=== PATIENT | female | born 1955 | race Caucasian/White ===

== ENCOUNTER 2018-09-03 16:18 | Outpatient (REF) | payer BC, SELFPAY ==
[2018-09-03 20:54] LABS: ALT 36 U/L (12-78); AST 26 U/L (15-37); Albumin 3.5 g/dL (3.4-5.0); Alkaline Phosphatase 98 U/L (46-116); Anion Gap 9.6 mmol/L (3-11); BUN 21 mg/dL (7-18); Bilirubin, Total 0.3 mg/dL (0.2-1.0); CO2 28.4 mmol/L (21.0-32.0); CREATININE 0.73 mg/dL (0.55-1.02); Calcium 9.3 mg/dL (8.5-10.1); Chloride 104 mmol/L (98-107); Glucose 93 mg/dL (70-100); Magnesium 2.2 mg/dL (1.8-2.4); Potassium 4.3 mmol/L (3.5-5.1); Sodium 142 mmol/L (136-145); Total Protein 7.3 g/dL (6.4-8.2)
[2018-09-03 21:20] LABS: HCT 42.2 % (36.0-46.0); HGB 14.1 g/dL (12.0-15.5); Mean Corp. HGB Concentration 33.4 g/dL (32.0-36.0); Mean Corpuscular Hemoglobin 29.9 pg (27.0-33.0); Mean Corpuscular Volume 89.4 fL (80-95); Mean Platelet Volume 10.3 fL (8.0-11.0); Platelet Count 311 x1000/uL (130-400); RBC 4.72 m/cumm (4.00-5.20); RBC Distribution Width 13.4 % (11.7-14.6); White Blood Cell Count 7.73 k/cumm (4.4-10.8)
[2018-09-03 22:25] LABS: ESR 12 MM/HR (0-30)
== END 2018-09-03 16:38 ==
LOC: NCHCN 16:18
PROVIDERS: PCP Nurse Practitioner Family; Visit Provider Family Medicine
DX: R42 Dizziness and giddiness (principal); M62.81 Muscle weakness (generalized)
CPT/HCPCS: 80053; 85027; 85652; 83735; 84443

== ENCOUNTER 2019-03-04 20:48 | Outpatient (REF) | payer BC, SELFPAY | END 2019-03-04 21:08 | LOC: NCHCN 20:48 | PROVIDERS: PCP Nurse Practitioner Family; Visit Provider Nurse Practitioner Family | DX: N39.0 Urinary tract infection, site not specified (principal) | CPT/HCPCS: 87086 ==

== ENCOUNTER 2019-03-08 15:56 | Outpatient (REF) | payer BC, SELFPAY | END 2019-03-08 16:16 | LOC: NCHCN 15:56 | PROVIDERS: PCP Nurse Practitioner Family; Visit Provider Nurse Practitioner Family | DX: N39.0 Urinary tract infection, site not specified (principal) | CPT/HCPCS: 87077; 87086; 87186 ==

== ENCOUNTER 2020-01-09 17:58 | Outpatient (REF) | payer MEDICAID, SELFPAY ==
[2020-01-09 21:17] LABS: Anion Gap 9.4 mmol/L (3-11); BUN 18 mg/dL (7-18); CO2 27.6 mmol/L (21.0-32.0); CREATININE 0.83 mg/dL (0.55-1.02); Chloride 104 mmol/L (98-107); Glucose 107 mg/dL (74-106); Potassium 3.9 mmol/L (3.5-5.1); Sodium 141 mmol/L (136-145)
== END 2020-01-09 18:18 ==
LOC: NCHCN 17:58
PROVIDERS: PCP Nurse Practitioner Family; Visit Provider Family Medicine
DX: R42 Dizziness and giddiness (principal); R53.83 Other fatigue; I10 Essential (primary) hypertension
CPT/HCPCS: 80048

== ENCOUNTER 2020-05-22 02:21 | Outpatient (CLI) | payer MEDICAID, SELFPAY ==
--- NOTE | 2020-07-03 08:39 | W.CARDEVENT ---
Date of service: 07/03/20 Time of Service: 08:39 Cardiac Event Recorder Referring Provider:: Nia Herring Indications:: Ventricular tachycardia Cardiac Event Note: This is a 30-day event monitor reportedly ordered for indications of ventricular tachycardia Predominant rhythm was sinus. Average heart rate was 82. Minimum heart rate was 56 and maximum 107 There were rare ventricular ectopic beats. There were no ventricular couplets or ventricular tachycardia There was no atrial fibrillation. There were no pauses greater than 3 seconds. There was no high-grade AV block
== END 2020-05-22 02:41 ==
PROVIDERS: PCP Nurse Practitioner Family; Visit Provider Family Medicine
DX: I47.2 Ventricular tachycardia (principal)
CPT/HCPCS: 93270

== ENCOUNTER 2020-09-24 15:13 | Outpatient (REF) | payer MEDICAID, SELFPAY | END 2020-09-24 15:14 | disposition home or self-care (01) | LOC: NCHCN 15:13 | PROVIDERS: PCP Nurse Practitioner Family; Visit Provider Nurse Practitioner Family | DX: R30.0 Dysuria (principal) | CPT/HCPCS: 87077; 87086; 87186 ==

== ENCOUNTER 2020-11-02 15:19 | Outpatient (REF) | payer MEDICARE, MEDICAID, SELFPAY ==
[2020-11-02 21:32] LABS: HCT 46.3 % (36.0-46.0); HGB 15.5 g/dL (11.2-15.7); MCHC 33.5 % (32.0-36.0); MCV 89.7 fL (80-95); Platelet Count 307 10^3/uL (130-400); RBC 5.16 10^6/uL (3.93-5.22); RDW 12.6 % (11.7-14.6); RDW-SD 41.9 fL; WBC 8.11 10^3/uL (4.4-10.8)
[2020-11-02 21:59] LABS: ALT 29 U/L (14-59); AST 21 U/L (15-37); Alkaline Phosphatase 83 U/L (46-116); Anion Gap 11.5 mmol/L (3-11); BUN 21 mg/dL (7-18); Bilirubin, Total 0.4 mg/dL (0.2-1.0); CO2 28.5 mmol/L (21.0-32.0); CREATININE 0.8 mg/dL (0.55-1.02); Calcium 10.4 mg/dL (8.5-10.1); Chloride 103 mmol/L (98-107); Glucose 91 mg/dL (74-106); Magnesium 1.9 mg/dL (1.8-2.4); Potassium 4.1 mmol/L (3.5-5.1); Sodium 143 mmol/L (136-145); Total Protein 7.9 g/dL (6.4-8.2)
== END 2020-11-02 15:20 | disposition home or self-care (01) ==
LOC: NCHCN 15:19
PROVIDERS: PCP Nurse Practitioner Family; Visit Provider Family Medicine
DX: I10 Essential (primary) hypertension (principal); R06.09 Other forms of dyspnea
CPT/HCPCS: 80053; 85027; 83735

== ENCOUNTER 2020-12-12 23:04 | Outpatient (REF) | payer MEDICARE, MEDICAID, SELFPAY | END 2020-12-12 23:05 | disposition home or self-care (01) | LOC: NCHCN 23:04 | PROVIDERS: PCP Nurse Practitioner Family; Visit Provider Family Medicine | DX: R47.1 Dysarthria and anarthria (principal) | CPT/HCPCS: 83519 ==

== ENCOUNTER 2021-03-19 12:00 | Outpatient (REF) | payer MEDICARE, MEDICAID, SELFPAY ==
[2021-03-19 14:32] LABS: Bilirubin Negative (Negative); Blood Small (Negative); Clarity Clear (Clear); Glucose Negative (Negative); Ketones Negative (Negative); Leukocyte Esterase Large (Negative); Nitrite Negative (Negative); Specific Gravity 1.015 (1.005-1.025); Urobilinogen 0.2 EU/dL (Up TO 0.2)
[2021-03-19 14:52] LABS: Bacteria Few HPF (Negative); C & S Indicated? Yes; Casts Negative LPF (Negative); Crystals Negative HPF (Negative); Epithelial Cells Few HPF (Negative); Mucus Negative (Negative)
[2021-03-19 15:45] LABS: Anion Gap 10.8 mmol/L (3-11); BUN 17 mg/dL (7-18); CO2 27.2 mmol/L (21.0-32.0); Calcium 9.3 mg/dL (8.5-10.1); Chloride 105 mmol/L (98-107); Estimated GFR 55.64 (mL/min/1.73m2); Glucose 98 mg/dL (74-106); Potassium 4.2 mmol/L (3.5-5.1); Sodium 143 mmol/L (136-145); TSH (W/Ref FT4) 1.07 uIU/mL (0.36-3.74)
[2021-03-20 10:42] LABS: Hepatitis C Ab w Rflx HCV PCR Negative (Negative)
== END 2021-03-19 12:01 | disposition home or self-care (01) ==
LOC: NCHCN 12:00
PROVIDERS: PCP Nurse Practitioner Family; Referring Provider Nurse Practitioner Family; Visit Provider Nurse Practitioner Family
DX: Z11.59 Encounter for screening for other viral diseases (principal); L65.9 Nonscarring hair loss, unspecified; I10 Essential (primary) hypertension; R31.9 Hematuria, unspecified
CPT/HCPCS: 80048; 86803; 81003; 81015; 84443; 87086

== ENCOUNTER 2021-04-05 01:59 | Outpatient (CLI) | payer MEDICARE, MEDICAID, SELFPAY ==
[2021-04-05 09:22] LABS: Abs Immature Grans 0.03 10^3/uL (0.0-0.06); Absolute Basophil Count 0.03 10^3/uL (0.0-0.2); Absolute Eosinophil Count 0.15 10^3/uL (0.0-0.7); Absolute Lymphocyte Count 1.39 10^3/uL (1.2-3.4); Absolute Monocyte Count 0.69 10^3/uL (0.1-0.8); Absolute Neutrophil Count 4.73 10^3/uL (1.2-6.7); Basophils % 0.4; Eosinophils % 2.1; HCT 42.5 % (36.0-46.0); HGB 14.6 g/dL (11.2-15.7); Immature Grans % 0.4; Lymphocytes % 19.8; MCH 30.2 pg (27.0-33.0); MCHC 34.4 % (32.0-36.0); MPV 9.8 fL (8.0-11.0); Monocytes % 9.8; Neutrophils % 67.5; Nucleated RBC 0 %; Platelet Count 252 10^3/uL (130-400); RBC 4.83 10^6/uL (3.93-5.22); RDW 12.8 % (11.7-14.6); RDW-SD 41.1 fL; WBC 7.02 10^3/uL (4.4-10.8)
[2021-04-05 10:15] LABS: Hemoglobin A1C 5.8 % (<5.7)
[2021-04-05 10:30] LABS: ALT 141 U/L (14-59); AST 68 U/L (15-37); Albumin 3.8 g/dL (3.4-5.0); Alkaline Phosphatase 86 U/L (46-116); Anion Gap 6.3 mmol/L (3-11); BUN 17 mg/dL (7-18); Bilirubin, Total 0.5 mg/dL (0.2-1.0); CO2 31.7 mmol/L (21.0-32.0); CREATININE 0.8 mg/dL (0.55-1.02); Calcium 9.5 mg/dL (8.5-10.1); Chloride 105 mmol/L (98-107); FREE T4 0.86 ng/dL (0.76-1.46); Glucose 89 mg/dL (74-106); Potassium 3.9 mmol/L (3.5-5.1); Sodium 143 mmol/L (136-145); TSH 0.77 uIU/mL (0.36-3.74); Total Protein 7.6 g/dL (6.4-8.2)
[2021-04-05 11:08] LABS: Calculated LDL 178 mg/dL (<100); Cholesterol 259 mg/dL (<200); Folate 12.2 ng/mL (8.6-20.0); HDL Cholesterol 59 mg/dL (40-60); Triglyceride 111 mg/dL (<150); Vitamin B12 587 pg/mL (193-986)
[2021-04-05 17:03] LABS: CRP, High Sensitivity 9.59 mg/L (See Note)
[2021-04-05 17:22] LABS: T3,Free 3.2 pg/mL (2.8-5.3)
[2021-04-07 10:00] LABS: Lipoprotein (a) 36 nmol/L (<75)
[2021-04-08 05:18] LABS: Vitamin D 25 Total 22.1 ng/mL (30-100)
[2021-04-08 11:57] LABS: Zinc, Serum 0.74 mcg/mL (0.66-1.10)
[2021-04-09 09:20] LABS: Free Retinol (Vitamin A) 62.4 mcg/dL (32.5-78.0)
[2021-04-10 17:24] LABS: Candida albicans IgG 63.4 mcg/mL (<52.0)
== END 2021-04-05 02:00 | disposition home or self-care (01) ==
LOC: LBO 01:59
PROVIDERS: PCP Nurse Practitioner Family; Visit Provider Naturopath
DX: E78.5 Hyperlipidemia, unspecified (principal); K13.0 Diseases of lips; R53.83 Other fatigue; E55.9 Vitamin D deficiency, unspecified
CPT/HCPCS: 36415; 80053; 80061; 82306; 83695; 86001; 86141; 82607; 82746; 83036; 84439; 84443; 84481; 84590; 84630; 85025

== ENCOUNTER 2021-06-07 11:16 | Outpatient (CLI) | payer MEDICARE, MEDICAID, SELFPAY ==
[2021-06-07] MEDS: Normal Saline 500 ML 30 ML IV (13:34)
[2021-06-07] MEDS: Normal Saline Flush 10 ML SYR IVP (13:34)
[2021-06-07 13:43] VITALS: BP 125/88; PULSE 81; RESP 20; TEMP 36.1; O2SAT 96
[2021-06-07 14:05] VITALS: BP 128/90; PULSE 73; RESP 20; TEMP 35.9; O2SAT 95
[2021-06-07 14:13] VITALS: BP 133/95; PULSE 81; RESP 16; TEMP 36.2; O2SAT 94
[2021-06-07 14:38] VITALS: BP 114/87; PULSE 76; RESP 20; TEMP 36.1; O2SAT 95
[2021-06-07 15:04] VITALS: BP 139/88; PULSE 78; RESP 18; TEMP 36.3; O2SAT 95
== END 2021-06-07 11:17 | disposition home or self-care (01) ==
PROVIDERS: PCP Nurse Practitioner Family; Visit Provider Family Medicine
DX: U07.1 COVID-19 (principal)
CPT/HCPCS: 96365

== ENCOUNTER 2021-07-12 03:39 | Outpatient (CLI) | payer MEDICARE, MEDICAID, SELFPAY ==
[2021-07-12 10:00] LABS: Hemoglobin A1C 5.5 % (<5.7)
[2021-07-12 11:31] LABS: ALT 50 U/L (14-59); AST 34 U/L (15-37); Albumin 3.9 g/dL (3.4-5.0); Alkaline Phosphatase 74 U/L (46-116); Bilirubin, Direct 0.1 mg/dL (0.0-0.2); Bilirubin, Total 0.6 mg/dL (0.2-1.0); C-Reactive Protein 0.47 mg/dL (0.0-0.3); Total Protein 7.7 g/dL (6.4-8.2)
[2021-07-12 11:43] LABS: Calculated LDL 171 mg/dL (<100); Cholesterol 266 mg/dL (<200); HDL Cholesterol 61 mg/dL (40-60); Triglyceride 172 mg/dL (<150)
== END 2021-07-12 03:40 | disposition home or self-care (01) ==
LOC: LBO 03:39
PROVIDERS: PCP Nurse Practitioner Family; Visit Provider Naturopath
DX: E78.5 Hyperlipidemia, unspecified (principal); R73.03 Prediabetes; E55.9 Vitamin D deficiency, unspecified; R74.01 Elevation of levels of liver transaminase levels; M54.89 Other dorsalgia; E83.42 Hypomagnesemia
CPT/HCPCS: 36415; 80061; 80076; 82306; 83036; 83735; 86140

== ENCOUNTER 2021-09-19 03:39 | Outpatient (CLI) | payer MEDICARE, MEDICAID, SELFPAY | END 2021-09-19 03:40 | disposition home or self-care (01) | LOC: LBO 03:39 | PROVIDERS: PCP Nurse Practitioner Family; Visit Provider Naturopath ==

== ENCOUNTER 2021-09-24 03:06 | Outpatient (CLI) | payer MEDICARE, MEDICAID, SELFPAY ==
[2021-09-24 14:16] LABS: Iron 85 ug/dL (50-170); Total Iron Binding Capacity 324 ug/dL (250-450)
[2021-09-24 14:25] LABS: Ferritin 185 ng/mL (8-252)
[2021-09-25 17:25] LABS: Zinc, Serum 0.69 mcg/mL (0.66-1.10)
== END 2021-09-24 03:07 | disposition home or self-care (01) ==
LOC: LBO 03:06
PROVIDERS: PCP Nurse Practitioner Family; Visit Provider Naturopath
DX: L65.9 Nonscarring hair loss, unspecified (principal)
CPT/HCPCS: 36415; 82728; 83540; 83550; 84630

== ENCOUNTER → 2022-02-25 13:52 | Outpatient (BNVA) | payer MEDICARE, MEDICAID, SELFPAY | PROVIDERS: PCP Nurse Practitioner Family; Referring Provider Nurse Practitioner Family; Visit Provider Internal Medicine Cardiovascular Disease | DX: I47.2 Ventricular tachycardia (principal); R42 Dizziness and giddiness; I10 Essential (primary) hypertension; E78.5 Hyperlipidemia, unspecified; G47.33 Obstructive sleep apnea (adult) (pediatric) | CPT/HCPCS: 93005; 99203 ==

== ENCOUNTER 2022-02-25 13:55 | Outpatient (CLI) | payer MEDICARE, MEDICAID, SELFPAY ==
--- NOTE | 2022-02-25 13:45 | RT.EKG_ITS ---
APPROVED REPORT Exam: Resting ECG Reason for Exam: NPW, Baseline needed Patient Location: O HR:66 bpm ECG Measurements Heart Rate 66 AXIS VT 191 P 53 QRSd 87 QRS 1 QT 395 T 9 QTc 414 Conclusion Sinus rhythm...normal P axis, V-rate 50- 99 Low voltage, precordial leads...precordial leads <1.0mV Otherwise normal
== END 2022-02-25 13:56 | disposition home or self-care (01) ==
LOC: DI.CARD 13:56
PROVIDERS: PCP Nurse Practitioner Family; Visit Provider Internal Medicine Cardiovascular Disease
DX: I47.2 Ventricular tachycardia (principal); R00.2 Palpitations; R42 Dizziness and giddiness
CPT/HCPCS: 93010

== ENCOUNTER 2022-08-21 13:32 | Outpatient (REF) | payer MEDICARE, MEDICAID, SELFPAY ==
[2022-08-21 14:10] LABS: Abs Immature Grans 0.02 10^3/uL (0.0-0.06); Absolute Basophil Count 0.05 10^3/uL (0.0-0.2); Absolute Eosinophil Count 0.17 10^3/uL (0.0-0.7); Absolute Lymphocyte Count 1.85 10^3/uL (1.2-3.4); Absolute Monocyte Count 0.72 10^3/uL (0.1-0.8); Absolute Neutrophil Count 4.62 10^3/uL (1.2-6.7); Basophils % 0.7; Eosinophils % 2.3; HCT 43.8 % (36.0-46.0); HGB 14.4 g/dL (11.2-15.7); Immature Grans % 0.3; Lymphocytes % 24.9; MCH 29.6 pg (27.0-33.0); MCHC 32.9 % (32.0-36.0); MCV 90 fL (80-95); MPV 9.8 fL (8.0-11.0); Monocytes % 9.7; Neutrophils % 62.1; Platelet Count 280 10^3/uL (130-400); RBC 4.87 10^6/uL (3.93-5.22); RDW 12.6 % (11.7-14.6); WBC 7.43 10^3/uL (4.4-10.8)
[2022-08-21 14:25] LABS: ALT 26 U/L (14-59); AST 24 U/L (15-37); Albumin 3.8 g/dL (3.4-5.0); Alkaline Phosphatase 77 U/L (46-116); Anion Gap 10.3 mmol/L (3-11); BUN 18 mg/dL (7-18); Bilirubin, Total 0.5 mg/dL (0.2-1.0); CO2 25.7 mmol/L (21.0-32.0); CREATININE 0.8 mg/dL (0.55-1.02); Calcium 9.5 mg/dL (8.5-10.1); Calculated LDL 168 mg/dL (<100); Chloride 105 mmol/L (98-107); Cholesterol 258 mg/dL (<200); Estimated GFR 80.71 (mL/min/1.73m2); Glucose 93 mg/dL (74-106); HDL Cholesterol 62 mg/dL (40-60); Potassium 4.4 mmol/L (3.5-5.1); Sodium 141 mmol/L (136-145); Total Protein 7.5 g/dL (6.4-8.2); Triglyceride 141 mg/dL (<150)
[2022-08-21 14:26] LABS: Hemoglobin A1C 5.3 % (<5.7)
== END 2022-08-21 13:33 | disposition home or self-care (01) ==
LOC: NCHCN 13:32
PROVIDERS: PCP Nurse Practitioner Family; Visit Provider Nurse Practitioner Family
DX: I10 Essential (primary) hypertension (principal); R74.8 Abnormal levels of other serum enzymes; G20 Parkinson's disease; I65.23 Occlusion and stenosis of bilateral carotid arteries; E78.5 Hyperlipidemia, unspecified; R73.03 Prediabetes
CPT/HCPCS: 80053; 80061; 83036; 85025

== ENCOUNTER 2023-02-10 02:13 | Outpatient (CLI) | payer MEDICARE, MEDICAID, SELFPAY ==
--- NOTE | 2023-02-10 | DI.RAD_ITS ---
Exam(s) XR HIP LT COMPLETE AP PELVIS EXAM: XR HIP LT COMPLETE AP PELVIS CLINICAL HISTORY: LT HIP PAIN, M25.552. TECHNIQUE: 2D digital imaging was performed of the left hip. Two views were obtained. AP pelvis an d lateral left hip views were obtained. COMPARISON: No exams were available for comparison FINDINGS: BONES: No acute fracture is present. No bony destructive lesion is seen. JOINTS: No dislocation present. There is mild narrowing of the hip joints bilaterally. The sacroilia c joints and symphysis pubis are unremarkable. SOFT TISSUE: Normal. IMPRESSION: Mild joint space narrowing of the hips bilaterally. DATA REPOSITORY: RADIATION DOSE DELIVERED:
== END 2023-02-10 02:33 ==
LOC: DI 02:13
PROVIDERS: PCP Nurse Practitioner Family; Visit Provider Nurse Practitioner Family
DX: M16.0 Bilateral primary osteoarthritis of hip (principal)
CPT/HCPCS: 73502

== ENCOUNTER 2023-03-20 14:11 | Outpatient (REF) | payer MEDICARE, MEDICAID, SELFPAY ==
[2023-03-20 15:20] LABS: Calculated LDL 172 mg/dL (<100); Cholesterol 260 mg/dL (<200); HDL Cholesterol 69 mg/dL (40-60); Triglyceride 96 mg/dL (<150)
[2023-03-20 15:39] LABS: Vitamin D 25 Total 27.3 ng/mL (30-100)
== END 2023-03-20 14:12 | disposition home or self-care (01) ==
LOC: NCHCN 14:11
PROVIDERS: PCP Nurse Practitioner Family; Visit Provider Nurse Practitioner Family
DX: E78.5 Hyperlipidemia, unspecified (principal); E55.9 Vitamin D deficiency, unspecified
CPT/HCPCS: 80061; 82306

== ENCOUNTER → 2023-04-30 02:07 | Outpatient (CLI) | payer MEDICARE, MEDICAID, SELFPAY ==
--- NOTE | 2023-04-30 10:00 | DI.MRI_ITS ---
Exam(s) MR LOWER JOINT LT WO EXAM: MR LOWER JOINT LT WO CLINICAL HISTORY: LT HIP PAIN, M25.552 TECHNIQUE: Multiplanar multisequence MRI of Pelvis was performed COMPARISON: US LEFT EXTREMITY ULTRASOUND from 03/27/2011 CR XR HIP LT COMPLETE AP PELVIS from 02/10/2023 FINDINGS: Bones: There is no fracture or contusion pattern. No bone marrow edema is seen. Joints: No significant joint effusion or gross labral defect is present. The SI joints and symphysis pubis are well maintained. Musculotendinous structures: Mild high signal at near the greater trochanter at the gluteus medius in sertion could indicate tendinosis. Abnormal thickening and high signal at the distal psoas tendon wi th some surrounding edema consistent with partial tear versus tendinitis. Intrapelvic structures: Large left-sided uterine fibroid, measuring nearly 7 cm in diameter mm diamet er. Other smaller fibroids noted. Prominent sigmoid diverticulosis.. IMPRESSION: Partial tear versus severe tendinitis of the left psoas tendon. Questionable tendinitis of the gluteus medius insertion. Large left-sided uterine fibroid. DATA REPOSITORY:
== END ==
PROVIDERS: PCP Nurse Practitioner Family; Visit Provider Nurse Practitioner Family
DX: M25.552 Pain in left hip (principal); M76.12 Psoas tendinitis, left hip
CPT/HCPCS: 73721

== ENCOUNTER 2023-05-12 05:15 | Emergency (ER) | payer MEDICARE, MEDICAID, SELFPAY ==
[2023-05-12 05:20] VITALS: BP 180/94; PULSE 85; RESP 18; TEMP 36.6; O2SAT 96
--- NOTE | 2023-05-12 05:29 | ED.GENADUL_ITS ---
Discharge Plan Disposition Patient Disposition: Home Discharge Details Clinical Impression: Chronic left hip pain Primary Care Provider: Linda Flanagan ED Provider: Azra Silvestre Home Meds and New Rx's Prescriptions: New meloxicam 15 mg tablet 15 mg PO DAILY Qty: 20 0RF Rx Instructions: take with food diazepam [Valium] 2 mg tablet 2 mg PO TID PRN (Reason: muscle spasm) Qty: 6 0RF No Action carvedilol 12.5 mg tablet 12.5 mg PO BID Qty: 60 6RF Rx Instructions: must administer with a meal/food rosuvastatin 5 mg tablet 5 mg PO DAILY hydrochlorothiazide 25 mg tablet 12.5 mg PO BID PRN labetalol 100 mg tablet 100 mg PO BID Discharge Instructions Additional Instructions: take mobic daily, with food. do not take with other NSAIDs. can take with tylenol every 4 hours. use the valium where severe pain and spasm. do not drive or drink alcohol when using the valium. use cane as needed to help with walking keep your follow up appointments Medical Decision Making emergent evaluation of acute on chronic left hip pain and muscle spasm. patient with recent MRI indicated abnormality consistent with the patient's symptoms. given the lack of new trauma, I do not think that new imaging would be beneficial. Her ongoing pain is likely been exacerbated by PT this week. Last dose of pain medicine was at 9pm. will given anti inflammatory and medicine for spasm. 610 reassessed after medication, the patient is able to Flex and extend at the hip. Symptoms seem significantly improved. She is also able to get up and ambulate. Will prescribe medications. Patient has close follow-up scheduled. Medical Records Medical records reviewed: Yes I reviewed the patient's medical records. HPI General Date/Time Provider Initiated Documentation: 05/12/23 05:22 . Limitations to Documentation: no limitations . Information obtained by: patient . HPI Narrative: 68y F with PMH of CAD, left hip pain presents for evaluation of left hip pain and spasm. Describes the pain as deep in the front part of her hip, worse with going from sitting to standing, movement causes of muscle spasm in the front part of her leg. She has no pain in her back or in the back of the leg. She has no weakness. She has been having this pain since January. No new trauma or fall. She recently had an MRI and has an upcoming appointment with orthopedics tomorrow. She has a PCP appointment today but didn't feel like she could handle the pain any longer. she reports that she has been going to PT and that over this week her pain has been getting worse. She takes Aleve without significant relief. Her last dose was at 9 PM last night. Related Data Home Medications Medication Instructions Recorded Confirmed rosuvastatin 5 mg tablet 5 mg PO DAILY 01/23/22 02/25/22 carvedilol 12.5 mg tablet 12.5 mg PO BID #60 tabs 02/25/22 02/25/22 hydrochlorothiazide 25 mg tablet 12.5 mg PO BID PRN 02/25/22 02/25/22 labetalol 100 mg tablet 100 mg PO BID 05/05/23 diazepam 2 mg tablet (Valium) 2 mg PO TID PRN muscle spasm #6 05/12/23 tabs meloxicam 15 mg tablet 15 mg PO DAILY #20 tabs 05/12/23 Previous Rx's Medication Instructions Recorded carvedilol 12.5 mg tablet 12.5 mg PO BID #60 tabs 02/25/22 diazepam 2 mg tablet (Valium) 2 mg PO TID PRN muscle spasm #6 05/12/23 tabs meloxicam 15 mg tablet 15 mg PO DAILY #20 tabs 05/12/23 Allergies Allergy/AdvReac Type Severity Reaction Status Date / Time Penicillins Allergy Mild Skin Rash Unverified 05/12/23 05:25 bisoprolol Allergy Unverified 05/12/23 05:25 lisinopril Allergy Unverified 05/12/23 05:25 losartan Allergy Unverified 05/12/23 05:25 shellfish derived Allergy Unverified 05/12/23 05:25 General Stated Complaint: Orthopedic TOYA: 4 PFSH All Active Problems (Updated 05/12/23 @ 06:14 by Azra Silvestre MD) Chronic left hip pain (Acute) Lesion of bladder (Acute) Osteopenia (Acute) Carotid artery stenosis (Acute) Medical History Uterine fibroid GERD (gastroesophageal reflux disease) Hyperlipidemia Obesity Hematuria Hypertension Lichen sclerosus Frequent unifocal PVCs Fatigue Family history of breast cancer in first degree relative Family hx of colon cancer Dysphagia Hair loss Vitamin D deficiency Irregular bowel habits Dizziness Muscle spasm Paresthesia History of depression Headache Memory loss Palpitations Bunion of right foot Obstructive sleep apnea Breast lump Ventricular tachycardia Metatarsalgia Hallux limitus Pre-ulcerative calluses Skin mole Dysuria Dysarthria Social History Smoking/Tobacco Use Status: Never Smoking risk assessment performed?: Yes Alcohol Intake: never Drug use: Never Exam Narrative Exam Narrative: Review of Systems: All systems reviewed & are unremarkable except as noted in HPI and below Well-developed, mild distress NACT PERRL, normal conjunctiva RRR Unlabored respiratory effort Nondistended abdomen Extremities w/o deformity, no cyanosis, no edema left hip without deformity or increased tenderness on palpation No rashes or lesions. no focal neurologic deficits Appropriate mood and affect Course Vital Signs Vital signs: Vital Signs Temperature 36.6 C 05/12/23 05:20 Pulse 85 05/12/23 05:20 Respiratory Rate 18 05/12/23 05:20 Blood Pressure 180/94 H 05/12/23 05:20 Pulse Oximetry 96 05/12/23 05:20 Temperature 36.6 C 05/12/23 05:20 Temperature Source Temporal Artery Scan 05/12/23 05:20 Pulse 85 05/12/23 05:20 Respiratory Rate 18 05/12/23 05:20 Respiratory Effort Normal 05/12/23 05:24 Blood Pressure 180/94 H 05/12/23 05:20 Blood Pressure Position Sitting 05/12/23 05:20 Pulse Oximetry 96 05/12/23 05:20 Oxygen Delivery Method Room Air 05/12/23 05:20 Oxygen Flow Rate 0 05/12/23 05:20 Pain Level 10 05/12/23 05:20
[2023-05-12] MEDS: diazePAM 2 MG TAB PO (05:33)
[2023-05-12] MEDS: Ketorolac 10 MG TAB PO (05:33)
[2023-05-12] MEDS: Acetaminophen 500 MG TAB 1000 MG PO (05:34)
[2023-05-12 06:19] VITALS: BP 146/76
== END 2023-05-12 06:20 | disposition home or self-care (01) ==
PROVIDERS: Emergency Provider Emergency Medicine; PCP Nurse Practitioner Family
DX: M25.552 Pain in left hip (principal); I10 Essential (primary) hypertension
CPT/HCPCS: 99282

== ENCOUNTER → 2023-05-13 09:56 | Outpatient (BNVA) | payer MEDICARE, MEDICAID, SELFPAY | PROVIDERS: PCP Nurse Practitioner Family; Referring Provider Nurse Practitioner Family; Visit Provider Student in an Organized Health Care Education/Training Program | DX: M16.12 Unilateral primary osteoarthritis, left hip (principal) | CPT/HCPCS: 99213 ==

== ENCOUNTER 2023-05-21 11:06 | Outpatient (CLI) | payer MEDICARE, MEDICAID, SELFPAY ==
--- NOTE | 2023-05-21 10:30 | DI.RAD_ITS ---
Exam(s) XR HIP LT COMPLETE AP PELVIS EXAM: XR HIP LT COMPLETE AP PELVIS CLINICAL HISTORY: left hip pain. TECHNIQUE: 2D digital imaging was performed. Two views. COMPARISON: CR XR HIP LT COMPLETE AP PELVIS from 02/10/2023 MR MR LOWER JOINT LT WO from 04/30/2023 FINDINGS: BONES: No acute fracture is present. No bony destructive lesion is seen. JOINTS: No dislocation present. Joint spaces are maintained. Mild bilateral acetabular spurring. Sclerosis of pubic symphysis. Visualized portions of SI joints are unremarkable. SOFT TISSUE: Normal. IMPRESSION: Mild degenerative changes of the hips. DATA REPOSITORY: RADIATION DOSE DELIVERED:
== END 2023-05-21 11:07 | disposition home or self-care (01) ==
LOC: DIORS 11:07
PROVIDERS: PCP Nurse Practitioner Family; Referring Provider Nurse Practitioner Family
DX: G89.29 Other chronic pain (principal); M25.552 Pain in left hip
CPT/HCPCS: 99214; 73502

== ENCOUNTER 2023-12-01 16:29 | Outpatient (REF) | payer MEDICARE, SELFPAY ==
[2023-12-01 14:23] LABS: ESR 5 mm/hr (0-30); HCT 43.3 % (36.0-46.0); HGB 14.6 g/dL (11.2-15.7); MCH 30.2 pg (27.0-33.0); MCHC 33.7 % (32.0-36.0); MCV 90 fL (80-95); MPV 10.4 fL (8.0-11.0); Platelet Count 276 10^3/uL (130-400); RBC 4.83 10^6/uL (3.93-5.22); RDW-SD 42.5 fL; WBC 8.02 10^3/uL (4.4-10.8)
[2023-12-01 14:34] LABS: Iron 76 ug/dL (50-170); Total Iron Binding Capacity 313 ug/dL (250-450); Transferrin Sat 24 % (15-50)
[2023-12-01 14:44] LABS: ALT 27 U/L (14-59); AST 17 U/L (15-37); Albumin 3.8 g/dL (3.4-5.0); Alkaline Phosphatase 84 U/L (46-116); Anion Gap 5.4 mmol/L (3-11); BUN 22 mg/dL (7-18); Bilirubin, Total 0.4 mg/dL (0.2-1.0); CO2 26.6 mmol/L (21.0-32.0); CREATININE 0.8 mg/dL (0.55-1.02); Calcium 9.3 mg/dL (8.5-10.1); Chloride 107 mmol/L (98-107); Estimated GFR 80.21 (mL/min/1.73m2); Glucose 106 mg/dL (74-106); Potassium 4.3 mmol/L (3.5-5.1); Sodium 139 mmol/L (136-145); Total Protein 7.3 g/dL (6.4-8.2)
[2023-12-01 14:54] LABS: C-Reactive Protein < 0.50 mg/dL (<or=0.5)
[2023-12-01 14:58] LABS: Vitamin D 25 Total 25.6 ng/mL (30-100)
== END 2023-12-01 16:30 | disposition home or self-care (01) ==
LOC: NCHCN 16:29
PROVIDERS: PCP Nurse Practitioner Family; Visit Provider Nurse Practitioner Family
DX: M79.18 Myalgia, other site (principal); E55.9 Vitamin D deficiency, unspecified; N39.0 Urinary tract infection, site not specified
CPT/HCPCS: 80053; 82306; 85027; 85652; 83540; 83550; 86140; 87086

== ENCOUNTER 2023-12-14 14:20 | Outpatient (REF) | payer MEDICARE, SELFPAY ==
[2023-12-14 15:18] LABS: Creatine Kinase 124 U/L (26-192)
== END 2023-12-14 14:21 | disposition home or self-care (01) ==
LOC: NCHCN 14:20
PROVIDERS: PCP Nurse Practitioner Family; Visit Provider Family Medicine
DX: M79.18 Myalgia, other site (principal)
CPT/HCPCS: 82550

== ENCOUNTER 2024-04-28 13:31 | Outpatient (CLI) | payer MEDICARE, SELFPAY ==
--- NOTE | 2024-04-28 14:06 | DI.RAD_ITS ---
Exam(s) XR PELVIS AP EXAM: XR PELVIS AP CLINICAL HISTORY: PAIN IN FEMUR, M79.659, PAIN HIP. TECHNIQUE: 2D digital imaging was performed. COMPARISON: CR XR HIP LT COMPLETE AP PELVIS from 05/21/2023 FINDINGS: Single AP view No evidence of pelvic nor hip fracture. No obvious degenerative changes in the hips. Degenerative d isc disease noted IMPRESSION: No acute fractures evident. DATA REPOSITORY: RADIATION DOSE DELIVERED:
--- NOTE | 2024-04-28 14:16 | DI.RAD_ITS ---
Exam(s) XR FEMUR RT EXAM: XR FEMUR RT CLINICAL HISTORY: PAIN IN FEMUR, M79.659, PAIN IN HIP. TECHNIQUE: 2D digital imaging was performed. COMPARISON: No exams were available for comparison FINDINGS: Four views No evidence of right hip nor right femur fracture. No obvious degenerative changes in the hip. Sign ificant degenerative changes are noted in the knee. No osseous lesions evident. Bone density is age-appropriate. No significant osseous lesions. IMPRESSION: No femur fracture. DATA REPOSITORY: RADIATION DOSE DELIVERED:
--- NOTE | 2024-04-28 18:12 | DI.VRAD_ITS ---
PROCEDURE INFORMATION: Exam: XR Pelvis Exam date and time: 04/28/2024 2:07 PM Age: 68 years old Clinical indication: Hip pain; Right hip TECHNIQUE: Imaging protocol: Radiologic exam of the pelvis. Views: 1 or 2 view. COMPARISON: CR XR HIP LT COMPLETE AP PELVIS 21/05/2023 10:58 FINDINGS: Bones/joints: Degenerative changes of the visualized lower lumbar spine. Degenerative changes of the symphysis pubis. Stable sclerotic bone island in the inferior right ramus. No evidence for acute bony injury. Mild degenerative changes at the right and left hip. Sclerotic changes of the left SI joint. Soft tissues: Unremarkable. IMPRESSION: No acute findings. If clinical symptoms persist recommend followup film in 7-10 days. Dictated and Authenticated by: Payal Plunkett MD. Ordering:AAMIR Dickinson MD
--- NOTE | 2024-04-28 18:31 | DI.VRAD_ITS ---
PROCEDURE INFORMATION: Exam: XR Right Femur Exam date and time: 04/28/2024 2:09 PM Age: 68 years old Clinical indication: Pain; Thigh; Right TECHNIQUE: Imaging protocol: Radiologic exam of the right femur. Views: 2 views. COMPARISON: CR XR PELVIS AP 28/04/2024 14:07 FINDINGS: Bones/joints: Mild degenerative changes. No evidence for acute bony injury. Tricompartmental degenerative changes of the knee. Soft tissues: Unremarkable. IMPRESSION: 1. No acute findings. If clinical symptoms persist recommend followup film in 7-10 days. 2. Mild degenerative changes of the hip. 3. Tricompartmental degenerative changes of the knee. Dictated and Authenticated by: Payal Plunkett MD. Ordering:AAMIR Dickinson MD
== END 2024-04-28 13:51 ==
LOC: DI 13:36
PROVIDERS: PCP Nurse Practitioner Family; Visit Provider Physician Assistant Medical
DX: M79.651 Pain in right thigh (principal)
CPT/HCPCS: 73552; 72170

== ENCOUNTER 2024-08-09 15:16 | Outpatient (REF) | payer MEDICARE, OTHER, SELFPAY ==
[2024-08-09 17:01] LABS: FREE T4 0.91 ng/dL (0.76-1.46); TSH 1.01 uIU/mL (0.36-3.74)
== END 2024-08-09 15:17 | disposition home or self-care (01) ==
LOC: NCHCN 15:16
PROVIDERS: PCP Nurse Practitioner Family; Visit Provider Nurse Practitioner Family
DX: R42 Dizziness and giddiness (principal)
CPT/HCPCS: 84439; 84443

== ENCOUNTER 2024-11-04 22:24 | Outpatient (REF) | payer MEDICARE, OTHER, SELFPAY ==
[2024-11-04 22:07] LABS: Abs Immature Grans 0.03 10^3/uL (0.0-0.06); Absolute Basophil Count 0.05 10^3/uL (0.0-0.2); Absolute Eosinophil Count 0.08 10^3/uL (0.0-0.7); Absolute Lymphocyte Count 2.03 10^3/uL (1.2-3.4); Absolute Monocyte Count 0.74 10^3/uL (0.1-0.8); Absolute Neutrophil Count 5.25 10^3/uL (1.2-6.7); Basophils % 0.6 %; HGB 16.2 g/dL (11.2-15.7); Immature Grans % 0.4 %; Lymphocytes % 24.8 %; MCH 30.5 pg (27.0-33.0); MCHC 33.8 % (32.0-36.0); MCV 90 fL (80-95); MPV 10.2 fL (8.0-11.0); Neutrophils % 64.2 %; Platelet Count 287 10^3/uL (130-400); RBC 5.32 10^6/uL (3.93-5.22); RDW 12.9 % (11.7-14.6); RDW-SD 42.1 fL; WBC 8.18 10^3/uL (4.4-10.8)
[2024-11-04 22:16] LABS: ALT 34 U/L (14-59); AST 29 U/L (15-37); Albumin 3.9 g/dL (3.4-5.0); Alkaline Phosphatase 104 U/L (46-116); Anion Gap 9.3 mmol/L (3-11); BUN 19 mg/dL (7-18); Bilirubin, Total 0.5 mg/dL (0.2-1.0); CO2 30.7 mmol/L (21.0-32.0); CREATININE 0.9 mg/dL (0.55-1.02); Calcium 9.6 mg/dL (8.5-10.1); Chloride 102 mmol/L (98-107); Glucose 142 mg/dL (74-106); Potassium 3.3 mmol/L (3.5-5.1); Sodium 142 mmol/L (136-145); Total Protein 7.9 g/dL (6.4-8.2)
== END 2024-11-04 22:25 | disposition home or self-care (01) ==
LOC: NCHCN 22:24
PROVIDERS: PCP Nurse Practitioner Family; Visit Provider Family Medicine
DX: R53.1 Weakness (principal)
CPT/HCPCS: 80053; 85025

== ENCOUNTER 2025-01-16 18:11 | Outpatient (REF) | payer MEDICARE, OTHER, SELFPAY ==
[2025-01-16 22:18] LABS: Abs Immature Grans 0.01 10^3/uL (0.0-0.06); HCT 44.2 % (36.0-46.0); HGB 15.1 g/dL (11.2-15.7); Immature Grans % 0.1 %; MCH 30.9 pg (27.0-33.0); MCHC 34.2 % (32.0-36.0); MCV 90 fL (80-95); MPV 10.5 fL (8.0-11.0); Platelet Count 291 10^3/uL (130-400); RBC 4.89 10^6/uL (3.93-5.22); RDW 13.1 % (11.7-14.6); RDW-SD 43.3 fL; WBC 7.52 10^3/uL (4.4-10.8)
[2025-01-16 22:42] LABS: ALT 28 U/L (14-59); AST 20 U/L (15-37); Albumin 3.9 g/dL (3.4-5.0); Alkaline Phosphatase 105 U/L (46-116); Anion Gap 9.7 mmol/L (3-11); BUN 22 mg/dL (7-18); Bilirubin, Total 0.5 mg/dL (0.2-1.0); CO2 28.3 mmol/L (21.0-32.0); Calcium 9.4 mg/dL (8.5-10.1); Chloride 107 mmol/L (98-107); Estimated GFR 97.10 (mL/min/1.73m2); Glucose 109 mg/dL (74-106); Potassium 4.1 mmol/L (3.5-5.1); Sodium 145 mmol/L (136-145); TSH (W/Ref FT4) 0.80 uIU/mL (0.36-3.74); Total Protein 7.5 g/dL (6.4-8.2)
[2025-01-18 10:45] LABS: Lyme Ab w Rflx to Lyme Confirm Negative (Negative)
[2025-01-20 16:56] LABS: B. miyamotoi PCR Negative (Negative); Babesia divergens/MO-1 Negative (Negative); Ehrlichia muris eauclairensis Negative (Negative)
== END 2025-01-16 18:12 | disposition home or self-care (01) ==
LOC: LBN 18:11
PROVIDERS: PCP Nurse Practitioner Family; Visit Provider Nurse Practitioner Family
DX: R53.83 Other fatigue (principal); Z79.899 Other long term (current) drug therapy; W57.XXXA Bitten or stung by nonvenomous insect and other nonvenomous arthropods, initial encounter
CPT/HCPCS: 80053; 87798; 84443; 85025; 86618

== ENCOUNTER → 2025-05-04 03:57 | Outpatient (CLI) | payer MEDICARE, OTHER, SELFPAY ==
--- NOTE | 2025-05-04 | DI.US_ITS ---
Exam(s) US PELVIS TRANSVAGINAL EXAM: US PELVIS TRANSVAGINAL CLINICAL HISTORY: FIBROID D21.9 EVALUATE STABILITY POSTMENOPAUSAL FIBROID TECHNIQUE: Ultrasound of the pelvis was performed both transabdominal and transvaginal. COMPARISON: US LEFT EXTREMITY ULTRASOUND from 03/27/2011 FINDINGS: UTERUS: Anteverted Measures 7 cm length x 3 cm AP x 4.2 cm wide. There are uterine fibroids noted. The largest of these fibroid is located posteriorly left and measures 6.3 by 5.7 x 6.6 cm. Small uterine fibroid is noted at the level of the fundus, right of center, this measuring 1.7 x 1.6 x 1.5 cm. Another smaller fibroid is noted in the anterior myometrium measuring 1.2 x 0.5 x 1.0 cm. Endometrial thickness measures up to 4.2 mm. There is no fluid in the endometrial canal. CERVIX: There are no obvious nabothian cysts. OVARIES: Both ovaries were not able to be identified. CUL-DE-SAC: No free fluid evident. IMPRESSION: 1. Three uterine fibroids. The largest is posterior left of center at the mid- lower uterus level and measures 6.3 x 5.7 x 6.6 cm. Others as described above. 2. Endometrial thickness is up to 4.2 mm requires follow-up 3. Both ovaries not identified. DATA REPOSITORY:
== END ==
PROVIDERS: PCP Nurse Practitioner Family; Visit Provider Obstetrics & Gynecology
DX: D21.9 Benign neoplasm of connective and other soft tissue, unspecified (principal)
CPT/HCPCS: 76830; 76856